=== PATIENT | male | born 2000 | race African-American/Black ===

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

== ENCOUNTER 2025-05-17 21:53 | Emergency (ER) | payer BC, MEDICAID ==
[~2025-05-17] VITALS: Ht 165.1 cm; Wt 78.0 kg
[2025-05-17 22:05] VITALS: TEMP 36.7; O2SAT 100
[2025-05-17] MEDS: KETOROLAC 15MG/ML VIAL IM ONE (22:55)
[2025-05-17] MEDS: LIDOCAINE 5% PATCH TOP SCH (22:56)
[2025-05-17] MEDS ORDERED: NAPR-1176 MT (23:55)
[2025-05-17] MEDS ORDERED: LIDO-53 TP (23:55)
[2025-05-18 00:25] VITALS: BP 126/79; PULSE 69; RESP 20; O2SAT 100
== END 2025-05-18 00:24 | disposition home or self-care (01) ==
LOC: ER 21:53
DX: S20.219A Contusion of unspecified front wall of thorax, initial encounter (principal); J45.909 Unspecified asthma, uncomplicated; Z79.1 Long term (current) use of non-steroidal anti-inflammatories (NSAID); F10.90 Alcohol use, unspecified, uncomplicated; F12.90 Cannabis use, unspecified, uncomplicated; W22.8XXA Striking against or struck by other objects, initial encounter; Y93.89 Activity, other specified; Y92.89 Other specified places as the place of occurrence of the external cause; Y99.8 Other external cause status
CPT/HCPCS: 99283; 71045; 96372; J1885